=== PATIENT | female | born 1945 | race Caucasian/White ===

== ENCOUNTER → 2020-05-01 | Day surgery (SDC) | payer MEDICARE ==
[2020-04-28 14:16] LABS: BASOPHILS # (AUTO) 0.1 (0.0-0.1); EOSINOPHILS # (AUTO) 0.2 (0.0-0.4); EOSINOPHILS % 3.7 % (0.0-6.0); HEMATOCRIT 43.1 % (34.2-44.1); HEMOGLOBIN 13.4 g/dL (12.0-16.0); LYMPHOCYTES # (AUTO) 2.6 (1.0-3.2); LYMPHOCYTES % 43.8 % (18.0-39.1); MEAN CORPUSCULAR HEMOGLOBIN 26.4 pg (28-32); MEAN CORPUSCULAR HGB CONC 31.1 g/dL (31-35); MEAN CORPUSCULAR VOLUME 84.8 fL (81-99); MONOCYTES # (AUTO) 0.5 (0.2-0.8); MONOCYTES % 8.5 % (4.4-11.3); NEUTROPHILS # (AUTO) 2.5 (2.1-6.9); NEUTROPHILS % 42.8 % (38.7-80.0); PLATELET COUNT 178 x10e3/uL (140-360); RED BLOOD COUNT 5.08 x10e6/uL (3.6-5.1); RED CELL DISTRIBUTION WIDTH 14.9 % (11.7-14.4)
[~2020-05-01] MED LIST: ACULAR5 ML OS; AMLODIPINE BESY10 MG PO; CALCIUM 1,0001 EACH PO; CALCIUM PLUS D3 PO; COQ-10100 MG PO; CYCLOBENZAPRINE10 MG PO; DUREZOL5 ML OS; FENTANYL CITRATE/PF 100MCG/2 ML INJ ONE; GABAPENTIN400 MG PO; GABAPENTIN600 MG PO; HYDRALAZINE HCL50 MG PO; HYDROCODONE/AP1 EAC1 PO; HYDROXYCHLOROQ200 MG PO; LIDOCAINE HCL 2% LOCAL INJ 5 ML SDV VIAL INJ ONE; LORTAB 7.51 EA PO; LOSARTAN POTAS100 MG PO; METOCLOPRAMIDE PO; MIDAZOLAM HCL 2 MG/2 ML VIAL ONE; MONTELUKAST SOD10 MG PO; MULTI-VITAMIN1 EACH PO; NORCO 10-325 T1 EACH PO; OMEGA 3-6-9 CO1 EACH PO; OMEPRAZOLE PO; OMEPRAZOLE40 MG PO; OXYBUTYNIN CHLOR5 MG PO; PROPOFOL IV EMULSION 10 MG/ML 20 ML VIAL ONE; ROBAXIN750 MG PO; SUPER B-50 COM1 EACH PO; TRAZODONE HCL100 MG PO; TURMERIC1 GM PO; VITAMIN D325 MCG PO; Z CO Q PO; Z VITAMIN C PO; Z.0.GABAPENTIN300 MG PO; Z.0.LEVOTHYROXINE50 PO; Z.0.MELOXICAM15 MG PO; Z.0.MULTIVITAMINS1 E PO; Z.0.VITAMIN E1000 UN PO; Z.1.CETIRIZINE HCL10 PO; [UNRECOGNIZED DRUG - OTHER] PO; [UNRECOGNIZED DRUG - OTHER] PO; [UNRECOGNIZED DRUG - OTHER] PO
[2020-05-01 10:15] VITALS: BP 117/63
== END | disposition home or self-care (01) ==
LOC: OR 06:54
PROVIDERS: ATTEND Internal Medicine Gastroenterology
DX: K20.90 Esophagitis, unspecified without bleeding (principal); K29.50 Unspecified chronic gastritis without bleeding; K31.89 Other diseases of stomach and duodenum; K21.9 Gastro-esophageal reflux disease without esophagitis; Z71.3 Dietary counseling and surveillance; E66.9 Obesity, unspecified; Z91.048 Other nonmedicinal substance allergy status; I10 Essential (primary) hypertension; E66.01 Morbid (severe) obesity due to excess calories; Z88.6 Allergy status to analgesic agent; Z01.810 Encounter for preprocedural cardiovascular examination; Z01.812 Encounter for preprocedural laboratory examination; Z20.828 Contact with and (suspected) exposure to other viral communicable diseases; Z68.39 Body mass index [BMI] 39.0-39.9, adult; Z87.891 Personal history of nicotine dependence
CPT/HCPCS: 36415; 43233; 43239; 85025; 87106; 87205; 88305; 88312; 93005; J2001; J2250; J2704; J3010; U0002; 43235

== ENCOUNTER → 2020-06-03 | Outpatient (CLI) | payer MEDICARE ==
[~2020-06-03] MED LIST changes: -FENTANYL CITRATE/PF 100MCG/2 ML INJ ONE; -LIDOCAINE HCL 2% LOCAL INJ 5 ML SDV VIAL INJ ONE; -MIDAZOLAM HCL 2 MG/2 ML VIAL ONE; -PROPOFOL IV EMULSION 10 MG/ML 20 ML VIAL ONE
== END ==
LOC: RAD 13:12
PROVIDERS: ATTEND Internal Medicine
DX: R60.0 Localized edema (principal)
CPT/HCPCS: 93970

== ENCOUNTER 2021-04-24 09:04 | Inpatient (IN) | payer MEDICARE ==
[~2021-04-24] VITALS: Ht 165.1 cm; Wt 115.7 kg
[2021-04-24] MEDS ORDERED: ONDANSETRON HCL INJ 2MG/ML 2ML 2 MG/ML VIAL IV PRN (09:45)
[2021-04-24] MEDS ORDERED: FENTANYL CITRATE/PF 100MCG/2 ML INJ IV PRN (09:45)
[2021-04-24] MEDS ORDERED: SODIUM CHLORIDE 0.9% 1000ML 1,000 ML IV SCH (09:45)
[2021-04-24] MEDS: CEFEPIME 1 GM in SODIUM CHLORIDE 0.9% 50ML 50 ML IV SCH ×2 (10:19→21:59)
[2021-04-24 10:39] LABS: BASOPHILS # (AUTO) 0.1 (0.0-0.1); EOSINOPHILS # (AUTO) 0.2 (0.0-0.4); EOSINOPHILS % 2.4 % (0.0-6.0); HEMOGLOBIN 12.8 g/dL (12.0-16.0); LYMPHOCYTES # (AUTO) 1.8 (1.0-3.2); LYMPHOCYTES % 27.4 % (18.0-39.1); MEAN CORPUSCULAR HEMOGLOBIN 26.4 pg (28-32); MEAN CORPUSCULAR HGB CONC 30.5 g/dL (31-35); MEAN CORPUSCULAR VOLUME 86.8 fL (81-99); MONOCYTES # (AUTO) 0.9 (0.2-0.8); NEUTROPHILS # (AUTO) 3.7 (2.1-6.9); NEUTROPHILS % 55.6 % (38.7-80.0); PLATELET COUNT 245 x10e3/uL (140-360); RED BLOOD COUNT 4.84 x10e6/uL (3.6-5.1); RED CELL DISTRIBUTION WIDTH 14.5 % (11.7-14.4)
[2021-04-24 10:48] LABS: ALBUMIN 4.2 g/dL (3.5-5.0); ALBUMIN/GLOBULIN RATIO 1.3 (0.8-2.0); CALCIUM 9.3 mg/dL (8.4-10.2); CREATININE, SERUM 0.74 mg/dL (0.57-1.11)
[2021-04-24] MEDS: Vancomycin IV 1 GM in SODIUM CHLORIDE 0.9% 250ML 250 ML IV SCH (10:57)
[2021-04-24] MEDS: SODIUM CHLORIDE 0.9% 1000ML 1,000 ML IV SCH ×2 (11:22→18:03)
[2021-04-24 15:52] VITALS: BP 91/71
[2021-04-24 17:26] VITALS: BP 91/71
[2021-04-24 17:46] VITALS: BP 91/71
[2021-04-24] MEDS ORDERED: PNEUMOCOCCAL VACCINE POLYVALENT 23 MCG/0.5 ML VIAL IM ONE (18:30)
[2021-04-24] MEDS ORDERED: TRAZODONE HCL 50 MG TAB PO PRN (18:30)
[2021-04-24] MEDS: HYDROCODONE/APAP 10MG-325MG TAB PO PRN (19:51)
[2021-04-24 20:00] VITALS: BP 109/57
[2021-04-24] MEDS: CYCLOBENZAPRINE HCL 10 MG TAB PO SCH (20:09)
[2021-04-24] MEDS ORDERED: GABAPENTIN 400 MG CAP PO SCH ×2 (21:00)
[2021-04-24] MEDS: HYDRALAZINE HCL 25 MG TAB PO SCH (21:00)
[2021-04-24] MEDS: AMLODIPINE BESYLATE 10 MG TAB PO SCH (21:00)
[2021-04-24 21:15] VITALS: BP 109/57
[2021-04-25] VITALS (9 sets, daily range): BP systolic 126–157; BP diastolic 59–89
[2021-04-25] MEDS: SODIUM CHLORIDE 0.9% 1000ML 1,000 ML IV SCH ×3 (01:11→18:05)
[2021-04-25] MEDS: OXYBUTYNIN CHLORIDE 5 MG TAB PO SCH ×4 (05:03→21:23)
[2021-04-25 06:36] LABS: BASOPHILS # (AUTO) 0.1 (0.0-0.1); BASOPHILS % 1.2 % (0.0-1.0); EOSINOPHILS # (AUTO) 0.1 (0.0-0.4); EOSINOPHILS % 1.7 % (0.0-6.0); HEMATOCRIT 39.6 % (34.2-44.1); LYMPHOCYTES # (AUTO) 2.3 (1.0-3.2); LYMPHOCYTES % 32.8 % (18.0-39.1); MEAN CORPUSCULAR HEMOGLOBIN 26.6 pg (28-32); MEAN CORPUSCULAR HGB CONC 30.3 g/dL (31-35); MEAN CORPUSCULAR VOLUME 87.8 fL (81-99); MONOCYTES # (AUTO) 0.9 (0.2-0.8); MONOCYTES % 13.4 % (4.4-11.3); NEUTROPHILS # (AUTO) 3.5 (2.1-6.9); NEUTROPHILS % 50.5 % (38.7-80.0); PLATELET COUNT 232 x10e3/uL (140-360); RED BLOOD COUNT 4.51 x10e6/uL (3.6-5.1); RED CELL DISTRIBUTION WIDTH 14.6 % (11.7-14.4)
[2021-04-25 07:11] LABS: CALCIUM 8.8 mg/dL (8.4-10.2); CREATININE, SERUM 0.62 mg/dL (0.57-1.11)
[2021-04-25] MEDS ORDERED: LEVOTHYROXINE SODIUM 50 MCG TAB PO SCH (09:00)
[2021-04-25] MEDS ORDERED: VITAMIN B COMPLEX PO SCH (09:00)
[2021-04-25] MEDS ORDERED: OXYBUTYNIN CHLORIDE 5 MG TAB PO SCH (09:00)
[2021-04-25] MEDS: HYDRALAZINE HCL 25 MG TAB PO SCH ×3 (09:43→21:23)
[2021-04-25] MEDS: CYCLOBENZAPRINE HCL 10 MG TAB PO SCH ×3 (09:43→21:25)
[2021-04-25] MEDS: MULTIVITAMINS/MINERALS TAB PO SCH (09:43)
[2021-04-25] MEDS: MELOXICAM 7.5 MG TAB PO SCH (09:43)
[2021-04-25] MEDS: OYST-CAL-D 500MG TABLET PO SCH (09:44)
[2021-04-25] MEDS: MONTELUKAST SODIUM 10 MG TAB PO SCH (09:44)
[2021-04-25] MEDS: CHOLECALCIFEROL 1,000 UNIT TAB PO SCH ×2 (09:44→18:05)
[2021-04-25] MEDS: PANTOPRAZOLE SOD 40 MG TABEC PO SCH ×2 (09:44→18:05)
[2021-04-25] MEDS: ASCORBIC ACID 500 MG TAB PO SCH (09:44)
[2021-04-25] MEDS: HYDROCODONE/APAP 10MG-325MG TAB PO PRN ×3 (10:45→22:08)
[2021-04-25] MEDS: CEFEPIME 1 GM in SODIUM CHLORIDE 0.9% 50ML 50 ML IV SCH ×2 (12:50→21:25)
[2021-04-25] MEDS: GABAPENTIN 400 MG CAP PO SCH ×2 (12:51→21:25)
[2021-04-25] MEDS: Vancomycin IV 1 GM in SODIUM CHLORIDE 0.9% 250ML 250 ML IV SCH (12:51)
[2021-04-25] MEDS: FOLIC ACID/CYANOCOB/PYRIDOXINE TAB PO SCH (12:51)
[2021-04-25] MEDS: AMLODIPINE BESYLATE 10 MG TAB PO SCH (21:25)
[2021-04-26] VITALS (8 sets, daily range): BP systolic 117–139; BP diastolic 58–77
[2021-04-26] MEDS: SODIUM CHLORIDE 0.9% 1000ML 1,000 ML IV SCH ×4 (01:04→23:56)
[2021-04-26] MEDS ORDERED: PNEUMOCOCCAL VACCINE POLYVALENT 23 MCG/0.5 ML VIAL IM ONE (03:00)
[2021-04-26] MEDS: LEVOTHYROXINE SODIUM 100 MCG TAB PO SCH (05:39)
[2021-04-26] MEDS: UBIDECARENONE 400 MG PO SCH (08:33)
[2021-04-26] MEDS: TURMERIC 1500 MG PO SCH (08:33)
[2021-04-26] MEDS: CYCLOBENZAPRINE HCL 10 MG TAB PO SCH ×3 (09:00→22:15)
[2021-04-26] MEDS: FOLIC ACID/CYANOCOB/PYRIDOXINE TAB PO SCH (09:00)
[2021-04-26] MEDS: OYST-CAL-D 500MG TABLET PO SCH (09:00)
[2021-04-26] MEDS: MELOXICAM 7.5 MG TAB PO SCH (09:00)
[2021-04-26] MEDS: CHOLECALCIFEROL 1,000 UNIT TAB PO SCH ×2 (09:00→16:38)
[2021-04-26] MEDS: PANTOPRAZOLE SOD 40 MG TABEC PO SCH ×2 (09:00→16:38)
[2021-04-26] MEDS: ASCORBIC ACID 500 MG TAB PO SCH (09:00)
[2021-04-26] MEDS: OXYBUTYNIN CHLORIDE 5 MG TAB PO SCH ×3 (09:00→22:15)
[2021-04-26] MEDS: HYDRALAZINE HCL 25 MG TAB PO SCH ×3 (09:00→22:15)
[2021-04-26] MEDS: MONTELUKAST SODIUM 10 MG TAB PO SCH (09:00)
[2021-04-26] MEDS: GABAPENTIN 400 MG CAP PO SCH ×2 (09:00→22:15)
[2021-04-26] MEDS: MULTIVITAMINS/MINERALS TAB PO SCH (09:00)
[2021-04-26] MEDS: CEFEPIME 1 GM in SODIUM CHLORIDE 0.9% 50ML 50 ML IV SCH ×3 (10:00→15:07)
[2021-04-26] MEDS: Vancomycin IV 1 GM in SODIUM CHLORIDE 0.9% 250ML 250 ML IV SCH ×3 (10:30→15:30)
[2021-04-26] MEDS: HYDROCODONE/APAP 10MG-325MG TAB PO PRN ×2 (17:29→23:52)
[2021-04-26] MEDS: AMLODIPINE BESYLATE 10 MG TAB PO SCH (22:15)
[2021-04-26] MEDS: TRAZODONE HCL 50 MG TAB PO PRN (22:17)
[2021-04-27] VITALS (9 sets, daily range): BP systolic 136–172; BP diastolic 60–79
[2021-04-27] MEDS: CEFEPIME 1 GM in SODIUM CHLORIDE 0.9% 50ML 50 ML IV SCH ×2 (02:47→15:33)
[2021-04-27] MEDS: LEVOTHYROXINE SODIUM 100 MCG TAB PO SCH (05:01)
[2021-04-27] MEDS: HYDROCODONE/APAP 10MG-325MG TAB PO PRN ×2 (06:15→22:16)
[2021-04-27] MEDS: MONTELUKAST SODIUM 10 MG TAB PO SCH (08:42)
[2021-04-27] MEDS: MULTIVITAMINS/MINERALS TAB PO SCH (08:42)
[2021-04-27] MEDS: ASCORBIC ACID 500 MG TAB PO SCH (08:42)
[2021-04-27] MEDS: CYCLOBENZAPRINE HCL 10 MG TAB PO SCH ×3 (08:42→21:45)
[2021-04-27] MEDS: OXYBUTYNIN CHLORIDE 5 MG TAB PO SCH ×3 (08:42→21:45)
[2021-04-27] MEDS: HYDRALAZINE HCL 25 MG TAB PO SCH ×3 (08:42→21:46)
[2021-04-27] MEDS: OYST-CAL-D 500MG TABLET PO SCH (08:42)
[2021-04-27] MEDS: FOLIC ACID/CYANOCOB/PYRIDOXINE TAB PO SCH (08:42)
[2021-04-27] MEDS: MELOXICAM 7.5 MG TAB PO SCH (08:42)
[2021-04-27] MEDS: PANTOPRAZOLE SOD 40 MG TABEC PO SCH ×2 (08:42→17:08)
[2021-04-27] MEDS: GABAPENTIN 400 MG CAP PO SCH ×2 (08:42→21:45)
[2021-04-27] MEDS: CHOLECALCIFEROL 1,000 UNIT TAB PO SCH ×2 (08:42→17:08)
[2021-04-27] MEDS: UBIDECARENONE 400 MG PO SCH (09:00)
[2021-04-27] MEDS: TURMERIC 1500 MG PO SCH (09:00)
[2021-04-27] MEDS: NYSTATIN/TRIAMCINOLONE 30 GM CR TOP SCH (15:45)
[2021-04-27] MEDS: Vancomycin IV 1 GM in SODIUM CHLORIDE 0.9% 250ML 250 ML IV SCH (16:30)
[2021-04-27] MEDS: AMLODIPINE BESYLATE 10 MG TAB PO SCH (21:46)
[2021-04-28] VITALS (7 sets, daily range): BP systolic 141–154; BP diastolic 68–75
[2021-04-28] MEDS: CEFEPIME 1 GM in SODIUM CHLORIDE 0.9% 50ML 50 ML IV SCH ×2 (03:18→15:00)
[2021-04-28] MEDS: LEVOTHYROXINE SODIUM 100 MCG TAB PO SCH (06:25)
[2021-04-28] MEDS: HYDRALAZINE HCL 25 MG TAB PO SCH ×3 (08:30→20:39)
[2021-04-28] MEDS: OXYBUTYNIN CHLORIDE 5 MG TAB PO SCH ×3 (08:30→20:39)
[2021-04-28] MEDS: CYCLOBENZAPRINE HCL 10 MG TAB PO SCH ×3 (08:30→20:39)
[2021-04-28] MEDS: UBIDECARENONE 400 MG PO SCH (09:00)
[2021-04-28] MEDS: TURMERIC 1500 MG PO SCH (09:00)
[2021-04-28] MEDS: NYSTATIN/TRIAMCINOLONE 30 GM CR TOP SCH (09:00)
[2021-04-28] MEDS: OYST-CAL-D 500MG TABLET PO SCH (10:10)
[2021-04-28] MEDS: GABAPENTIN 400 MG CAP PO SCH ×2 (10:10→20:39)
[2021-04-28] MEDS: MONTELUKAST SODIUM 10 MG TAB PO SCH (10:10)
[2021-04-28] MEDS: PANTOPRAZOLE SOD 40 MG TABEC PO SCH ×2 (10:10→17:17)
[2021-04-28] MEDS: CHOLECALCIFEROL 1,000 UNIT TAB PO SCH ×2 (10:10→17:18)
[2021-04-28] MEDS: MELOXICAM 7.5 MG TAB PO SCH (10:10)
[2021-04-28] MEDS: ASCORBIC ACID 500 MG TAB PO SCH (10:10)
[2021-04-28] MEDS: FOLIC ACID/CYANOCOB/PYRIDOXINE TAB PO SCH (10:10)
[2021-04-28] MEDS: MULTIVITAMINS/MINERALS TAB PO SCH (10:10)
[2021-04-28] MEDS: HYDROCODONE/APAP 10MG-325MG TAB PO PRN ×2 (15:00→22:33)
[2021-04-28] MEDS: Vancomycin IV 1 GM in SODIUM CHLORIDE 0.9% 250ML 250 ML IV SCH (16:00)
[2021-04-28] MEDS: AMLODIPINE BESYLATE 10 MG TAB PO SCH (20:39)
[2021-04-28] MEDS: TRAZODONE HCL 50 MG TAB PO PRN (22:33)
[2021-04-29] VITALS (9 sets, daily range): BP systolic 108–133; BP diastolic 58–79
[2021-04-29] MEDS: CEFEPIME 1 GM in SODIUM CHLORIDE 0.9% 50ML 50 ML IV SCH ×2 (03:30→14:00)
[2021-04-29] MEDS ORDERED: SODIUM CHLORIDE 0.9% 250ML 250 ML ONE (03:32)
[2021-04-29] MEDS: LEVOTHYROXINE SODIUM 100 MCG TAB PO SCH (06:00)
[2021-04-29] MEDS ORDERED: MUPIROCIN 2% OINT 22 GM TUBE TOP SCH (09:00)
[2021-04-29] MEDS: UBIDECARENONE 400 MG PO SCH (09:00)
[2021-04-29] MEDS: HYDRALAZINE HCL 25 MG TAB PO SCH ×3 (09:00→21:00)
[2021-04-29] MEDS: TURMERIC 1500 MG PO SCH (09:16)
[2021-04-29] MEDS: OXYBUTYNIN CHLORIDE 5 MG TAB PO SCH ×3 (09:17→21:00)
[2021-04-29] MEDS: OYST-CAL-D 500MG TABLET PO SCH (09:19)
[2021-04-29] MEDS: PANTOPRAZOLE SOD 40 MG TABEC PO SCH ×2 (09:19→16:15)
[2021-04-29] MEDS: CYCLOBENZAPRINE HCL 10 MG TAB PO SCH ×3 (09:19→21:00)
[2021-04-29] MEDS: GABAPENTIN 400 MG CAP PO SCH ×2 (09:19→21:00)
[2021-04-29] MEDS: FOLIC ACID/CYANOCOB/PYRIDOXINE TAB PO SCH (09:19)
[2021-04-29] MEDS: MULTIVITAMINS/MINERALS TAB PO SCH (09:19)
[2021-04-29] MEDS: MONTELUKAST SODIUM 10 MG TAB PO SCH (09:19)
[2021-04-29] MEDS: CHOLECALCIFEROL 1,000 UNIT TAB PO SCH ×2 (09:19→16:15)
[2021-04-29] MEDS: MELOXICAM 7.5 MG TAB PO SCH (09:19)
[2021-04-29] MEDS: ASCORBIC ACID 500 MG TAB PO SCH (09:19)
[2021-04-29] MEDS: NYSTATIN/TRIAMCINOLONE 30 GM CR TOP SCH (11:37)
[2021-04-29] MEDS: Vancomycin IV 1 GM in SODIUM CHLORIDE 0.9% 250ML 250 ML IV SCH ×2 (11:37→22:30)
[2021-04-29] MEDS ORDERED: ONDANSETRON HCL 4 MG ORAL DISINTEGRATING TAB PO PRN (13:15)
[2021-04-29] MEDS: HYDROCODONE/APAP 10MG-325MG TAB PO PRN (18:01)
[2021-04-29] MEDS: AMLODIPINE BESYLATE 10 MG TAB PO SCH (21:00)
[2021-04-30] VITALS: BP 151/63
[2021-04-30] MEDS: TRAZODONE HCL 50 MG TAB PO PRN (00:40)
[2021-04-30] MEDS: CEFEPIME 1 GM in SODIUM CHLORIDE 0.9% 50ML 50 ML IV SCH (02:45)
[2021-04-30 04:00] VITALS: BP 123/76
[2021-04-30] MEDS: LEVOTHYROXINE SODIUM 100 MCG TAB PO SCH (06:00)
[2021-04-30 07:36] VITALS: BP 125/78
[2021-04-30 07:50] VITALS: BP 125/78
[2021-04-30] MEDS: HYDRALAZINE HCL 25 MG TAB PO SCH (08:31)
[2021-04-30] MEDS: OXYBUTYNIN CHLORIDE 5 MG TAB PO SCH (08:31)
[2021-04-30] MEDS: MELOXICAM 7.5 MG TAB PO SCH (08:32)
[2021-04-30] MEDS: MULTIVITAMINS/MINERALS TAB PO SCH (08:32)
[2021-04-30] MEDS: CYCLOBENZAPRINE HCL 10 MG TAB PO SCH (08:32)
[2021-04-30] MEDS: GABAPENTIN 400 MG CAP PO SCH (08:33)
[2021-04-30] MEDS: MONTELUKAST SODIUM 10 MG TAB PO SCH (08:34)
[2021-04-30] MEDS: CHOLECALCIFEROL 1,000 UNIT TAB PO SCH (08:34)
[2021-04-30] MEDS: ASCORBIC ACID 500 MG TAB PO SCH (08:34)
[2021-04-30] MEDS: FOLIC ACID/CYANOCOB/PYRIDOXINE TAB PO SCH (09:00)
[2021-04-30] MEDS: TURMERIC 1500 MG PO SCH (09:00)
[2021-04-30] MEDS: OYST-CAL-D 500MG TABLET PO SCH (09:00)
[2021-04-30] MEDS: UBIDECARENONE 400 MG PO SCH (09:00)
[2021-04-30] MEDS: PANTOPRAZOLE SOD 40 MG TABEC PO SCH (09:39)
[2021-05-01] MEDS ORDERED: HYDROXYCHLOROQUINE SULFATE 200 MG TAB PO SCH (09:00)
== END 2021-04-30 10:05 | disposition home or self-care (01) | DRG 603 ==
LOC: ER 09:35 → ERHOLD 09:39 → MED/SURG2 15:00
PROVIDERS: ADMIT Internal Medicine; ATTEND Internal Medicine
PROC: 02HV33Z Insertion of Infusion Device into Superior Vena Cava, Percutaneous Approach (ICD-10-PCS; principal; 2021-04-26)
DX: L03.116 Cellulitis of left lower limb (principal); Z68.41 Body mass index [BMI] 40.0-44.9, adult; L03.115 Cellulitis of right lower limb; I10 Essential (primary) hypertension; G62.9 Polyneuropathy, unspecified; K21.9 Gastro-esophageal reflux disease without esophagitis; E03.9 Hypothyroidism, unspecified; E66.01 Morbid (severe) obesity due to excess calories; Z20.822 Contact with and (suspected) exposure to COVID-19; G89.29 Other chronic pain; Z96.649 Presence of unspecified artificial hip joint; Z96.659 Presence of unspecified artificial knee joint
CPT/HCPCS: 36415; 36569; 71045; 80048; 80053; 80202; 83605; 85025; 87040; 90732; 93970; 94799; 99251; 99284; J0692; J3010; J3370; J7030; J7050; U0002

== ENCOUNTER → 2022-04-06 | Day surgery (SDC) | payer MEDICARE ==
[2022-04-01 12:14] LABS: BASOPHILS # (AUTO) 0.1 (0.0-0.1); BASOPHILS % 0.8 % (0.0-1.0); EOSINOPHILS # (AUTO) 0.2 (0.0-0.4); HEMATOCRIT 43.5 % (34.2-44.1); HEMOGLOBIN 13.6 g/dL (12.0-16.0); LYMPHOCYTES # (AUTO) 2.3 (1.0-3.2); LYMPHOCYTES % 31.1 % (18.0-39.1); MEAN CORPUSCULAR HGB CONC 31.3 g/dL (31-35); MEAN CORPUSCULAR VOLUME 86.5 fL (81-99); MONOCYTES # (AUTO) 0.7 (0.2-0.8); MONOCYTES % 9.2 % (4.4-11.3); NEUTROPHILS # (AUTO) 4.1 (2.1-6.9); NEUTROPHILS % 55.8 % (38.7-80.0); PLATELET COUNT 215 x10e3/uL (140-360); RED BLOOD COUNT 5.03 x10e6/uL (3.6-5.1); RED CELL DISTRIBUTION WIDTH 13.5 % (11.7-14.4)
[2022-04-01 12:57] LABS: ALANINE AMINOTRANSFERASE 14 IU/L (0-55); ALBUMIN 4.3 g/dL (3.5-5.0); ALBUMIN/GLOBULIN RATIO 1.2 (0.8-2.0); ALKALINE PHOSPHATASE 64 IU/L (40-150); ANION GAP 16.9 mmol/L (8-16); BLOOD UREA NITROGEN 18 mg/dL (7-26); BUN/CREATININE RATIO 23 (6-25); CALCIUM 9.8 mg/dL (8.4-10.2); CARBON DIOXIDE 29 mmol/L (22-29); CHLORIDE 98 mmol/L (98-107); CHOL/HDL RATIO 2.9 (3.0-3.6); CHOLESTEROL 159 MD/DL (0-199); CREATININE, SERUM 0.77 mg/dL (0.57-1.11); GLUCOSE 98 mg/dL (74-118); HDL CHOLESTEROL 55 MG/DL (40-60); LDL CHOLESTEROL 81 MG/DL (60-130); POTASSIUM 3.9 mmol/L (3.5-5.1); SODIUM 140 mmol/L (136-145); TRIGLYCERIDES 114 MG/DL (0-149)
[2022-04-06] VITALS (9 sets, daily range): BP systolic 106–157; BP diastolic 57–68
[~2022-04-06] VITALS: Ht 165.1 cm; Wt 107.5 kg
[~2022-04-06] MED LIST changes: +ACETAMINOPHEN 325 MG TAB PO PRN; +ALPRAZOLAM 0.5 MG TAB ONE; +ASPIRIN 325 MG TAB ONE; +BUSPIRONE HCL 10 MG TABLET PO SCH; +BUSPIRONE HCL10 MG PO; +CO Q10200 MG; +DIPHENHYDRAMINE HCL 25 MG CAP ONE; +FENTANYL CITRATE/PF 100MCG/2 ML INJ ONE; +GABAPENTIN 400 MG CAP PO SCH; +HEPARIN SOD/SOD CHLORIDE 2,000 ML ONE; +HYDRALAZINE HCL 25 MG TAB PO SCH; +HYDROCODONE/APAP 10MG-325MG TAB PO PRN; +HYDROCODONE/APAP 5MG-325MG TAB PO PRN; +HYDROXYCHLOROQUINE SULFATE 200 MG TAB PO SCH; +HYZAAR 100-251 EACH; +IOPAMIDOL 300MG/ML 100 ML INFUS..BTL IV ONE; +LEVOTHYROXINE SODIUM 50 MCG TAB PO SCH; +LIDOCAINE HCL 2% LOCAL INJ 5 ML SDV VIAL INJ ONE; +LIOTHYRONINE SO5 MCG PO; +LIOTHYRONINE SODIUM 5 MCG TAB PO SCH; +MELOXICAM 7.5 MG TAB PO SCH; +MIDAZOLAM HCL 2 MG/2 ML VIAL ONE; +MONTELUKAST SODIUM 10 MG TAB PO SCH; +MULTIVITAMINS/MINERALS TAB PO SCH; +ONDANSETRON HCL INJ 2MG/ML 2ML 2 MG/ML VIAL IV PRN; +OXYBUTYNIN CHLORIDE 5 MG TAB PO SCH; +PANTOPRAZOLE SOD 40 MG TABEC PO SCH; +PRASUGREL 10 MG TAB ONE; +SODIUM CHLORIDE 0.9% 1000ML 1,000 ML IV SCH; +SODIUM CHLORIDE FLUSH 10 ML SYR INJ PRN; +TRAZODONE HCL 50 MG TAB PO PRN; +TURMERIC 1500 MG PO SCH; +UBIDECARENONE 400 MG PO SCH; +UBIDECARENONE 600 MG SCH; +VERAPAMIL HCL 2.5 MG/ML 2 ML VIAL ONE; +VITAMIN B COMPLEX PO SCH; +VITAMIN E 400 UNIT CAP PO SCH; +VITAMIN E400 UNI1 PO; +ZOLPIDEM TARTRATE 5 MG TAB PO PRN; +[UNRECOGNIZED DRUG - OTHER]
== END | disposition home or self-care (01) ==
LOC: CATH LAB 10:14
PROVIDERS: ATTEND Internal Medicine Interventional Cardiology
DX: I70.211 Atherosclerosis of native arteries of extremities with intermittent claudication, right leg (principal); L03.119 Cellulitis of unspecified part of limb; I87.2 Venous insufficiency (chronic) (peripheral); R60.9 Edema, unspecified; Z88.6 Allergy status to analgesic agent; Z91.048 Other nonmedicinal substance allergy status; Z01.812 Encounter for preprocedural laboratory examination; Z20.822 Contact with and (suspected) exposure to COVID-19; Z79.899 Other long term (current) drug therapy; Z79.1 Long term (current) use of non-steroidal anti-inflammatories (NSAID); Z68.42 Body mass index [BMI] 45.0-49.9, adult; Z86.718 Personal history of other venous thrombosis and embolism; Z82.49 Family history of ischemic heart disease and other diseases of the circulatory system
CPT/HCPCS: 0223U; 36415; 37225; 75625; 76937; 80053; 80061; 85025; 94799; C1724; C1760; C1887 ×2; C1894; C2623; J2001; J2250; J3010; J7030; Q9967; 36247; 37224; 75710; 99152; 99153

== ENCOUNTER 2022-07-08 10:06 | Outpatient (RCR) | payer MEDICARE ==
[~2022-07-08 10:06] MED LIST changes: -ACETAMINOPHEN 325 MG TAB PO PRN; -ALPRAZOLAM 0.5 MG TAB ONE; -ASPIRIN 325 MG TAB ONE; +ASPIRIN81 MG PO; +ATORVASTATIN CA20 MG PO; -BUSPIRONE HCL 10 MG TABLET PO SCH; +CLOPIDOGREL75 MG PO; -DIPHENHYDRAMINE HCL 25 MG CAP ONE; -FENTANYL CITRATE/PF 100MCG/2 ML INJ ONE; -GABAPENTIN 400 MG CAP PO SCH; -HEPARIN SOD/SOD CHLORIDE 2,000 ML ONE; -HYDRALAZINE HCL 25 MG TAB PO SCH; -HYDROCODONE/APAP 10MG-325MG TAB PO PRN; -HYDROCODONE/APAP 5MG-325MG TAB PO PRN; -HYDROXYCHLOROQUINE SULFATE 200 MG TAB PO SCH; -IOPAMIDOL 300MG/ML 100 ML INFUS..BTL IV ONE; -LEVOTHYROXINE SODIUM 50 MCG TAB PO SCH; -LIDOCAINE HCL 2% LOCAL INJ 5 ML SDV VIAL INJ ONE; -LIOTHYRONINE SODIUM 5 MCG TAB PO SCH; -MELOXICAM 7.5 MG TAB PO SCH; -MIDAZOLAM HCL 2 MG/2 ML VIAL ONE; -MONTELUKAST SODIUM 10 MG TAB PO SCH; -MULTIVITAMINS/MINERALS TAB PO SCH; -ONDANSETRON HCL INJ 2MG/ML 2ML 2 MG/ML VIAL IV PRN; -OXYBUTYNIN CHLORIDE 5 MG TAB PO SCH; -PANTOPRAZOLE SOD 40 MG TABEC PO SCH; -PRASUGREL 10 MG TAB ONE; -SODIUM CHLORIDE 0.9% 1000ML 1,000 ML IV SCH; -SODIUM CHLORIDE FLUSH 10 ML SYR INJ PRN; +TERBINAFINE HC250 MG PO; -TRAZODONE HCL 50 MG TAB PO PRN; -TURMERIC 1500 MG PO SCH; -UBIDECARENONE 400 MG PO SCH; -UBIDECARENONE 600 MG SCH; -VERAPAMIL HCL 2.5 MG/ML 2 ML VIAL ONE; -VITAMIN B COMPLEX PO SCH; -VITAMIN E 400 UNIT CAP PO SCH; -ZOLPIDEM TARTRATE 5 MG TAB PO PRN; +[UNRECOGNIZED DRUG - OTHER] PO
[2022-07-08] MEDS ORDERED: LIDOCAINE VISC 2% SOLN 15 ML UDC ONE (13:37)
[2022-07-08] MEDS ORDERED: MINERAL OIL/PETROLAT/GLYCERI 6OZ BTL ONE (13:37)
[2022-07-08] MEDS ORDERED: TRIAMCINOLONE ACET 0.1% CREAM 15 GM TUBE ONE (13:37)
[2022-07-08] MEDS ORDERED: MUPIROCIN 2% OINT 22 GM TUBE ONE (13:37)
[2022-07-08 13:45] LABS: BASOPHILS # (AUTO) 0.1 (0.0-0.1); BASOPHILS % 1.3 % (0.0-1.0); EOSINOPHILS # (AUTO) 0.3 (0.0-0.4); EOSINOPHILS % 4.1 % (0.0-6.0); HEMATOCRIT 39.6 % (34.2-44.1); HEMOGLOBIN 12.4 g/dL (12.0-16.0); LYMPHOCYTES % 28.7 % (18.0-39.1); MEAN CORPUSCULAR HEMOGLOBIN 26.6 pg (28-32); MEAN CORPUSCULAR HGB CONC 31.3 g/dL (31-35); MONOCYTES # (AUTO) 0.7 (0.2-0.8); MONOCYTES % 10.2 % (4.4-11.3); NEUTROPHILS # (AUTO) 3.8 (2.1-6.9); NEUTROPHILS % 55.3 % (38.7-80.0); PLATELET COUNT 243 x10e3/uL (140-360); RED BLOOD COUNT 4.66 x10e6/uL (3.6-5.1); RED CELL DISTRIBUTION WIDTH 14.5 % (11.7-14.4)
[2022-07-08 14:07] LABS: ALBUMIN 3.9 g/dL (3.5-5.0); ALBUMIN/GLOBULIN RATIO 1.2 (0.8-2.0); ANION GAP 14.1 mmol/L (8-16); CALCIUM 9.4 mg/dL (8.4-10.2); CREATININE, SERUM 0.68 mg/dL (0.57-1.11); POTASSIUM 4.1 mmol/L (3.5-5.1)
== END 2022-07-13 ==
LOC: WCC 10:06
PROVIDERS: ATTEND Family Medicine Adult Medicine
DX: S31.819A Unspecified open wound of right buttock, initial encounter (principal); S31.829A Unspecified open wound of left buttock, initial encounter; S81.801A Unspecified open wound, right lower leg, initial encounter; I83.10 Varicose veins of unspecified lower extremity with inflammation; R60.0 Localized edema; I10 Essential (primary) hypertension; E78.5 Hyperlipidemia, unspecified; E03.9 Hypothyroidism, unspecified; M54.31 Sciatica, right side; M17.9 Osteoarthritis of knee, unspecified; F41.1 Generalized anxiety disorder; K21.9 Gastro-esophageal reflux disease without esophagitis; R26.89 Other abnormalities of gait and mobility
CPT/HCPCS: 36415; 80053; 82784; 82785; 84134; 85025; 86039; 86431; 87071; 87075; 87205

== ENCOUNTER → 2022-07-27 | Day surgery (SDC) | payer MEDICARE | END | disposition home or self-care (01) | LOC: OR 05:55 | PROVIDERS: ATTEND Plastic Surgery | DX: S21.002A Unspecified open wound of left breast, initial encounter (principal); X58.XXXA Exposure to other specified factors, initial encounter; Z01.810 Encounter for preprocedural cardiovascular examination; Z01.812 Encounter for preprocedural laboratory examination; Z86.718 Personal history of other venous thrombosis and embolism; Z53.8 Procedure and treatment not carried out for other reasons | CPT/HCPCS: 71046; 93005; J0690 ==

== ENCOUNTER 2022-08-04 11:29 | Outpatient (RCR) | payer MEDICARE ==
[~2022-08-04 11:29] MED LIST changes: +BUPIVACAINE 0.5%/EPI 30 ML SDV INJ ONE; +BUPIVACAINE HCL 0.5% INJ 30 ML VIAL INJ ONE; +LIDOCAINE VISC 2% SOLN 15 ML UDC ONE; +MUPIROCIN 2% OINT 22 GM TUBE ONE; +TRIAMCINOLONE ACET 0.1% CREAM 15 GM TUBE ONE
[2022-08-04] MEDS ORDERED: MUPIROCIN 2% OINT 22 GM TUBE ONE (11:56)
[2022-08-04] MEDS ORDERED: LIDOCAINE VISC 2% SOLN 15 ML UDC ONE (11:56)
== END 2022-08-10 ==
LOC: WCC 11:29
PROVIDERS: ATTEND Family Medicine Adult Medicine
DX: S21.002A Unspecified open wound of left breast, initial encounter (principal); S31.819A Unspecified open wound of right buttock, initial encounter; S31.829A Unspecified open wound of left buttock, initial encounter; S81.801A Unspecified open wound, right lower leg, initial encounter; I83.10 Varicose veins of unspecified lower extremity with inflammation; S80.821A Blister (nonthermal), right lower leg, initial encounter; R60.0 Localized edema; I10 Essential (primary) hypertension; E78.5 Hyperlipidemia, unspecified; E03.9 Hypothyroidism, unspecified; F41.1 Generalized anxiety disorder; K21.9 Gastro-esophageal reflux disease without esophagitis; M17.9 Osteoarthritis of knee, unspecified; M54.31 Sciatica, right side; N64.89 Other specified disorders of breast; R26.89 Other abnormalities of gait and mobility
CPT/HCPCS: 87071; 87075; 87205

== ENCOUNTER → 2022-08-26 | Day surgery (SDC) | payer MEDICARE ==
[2022-08-23 13:58] LABS: BASOPHILS # (AUTO) 0.1 (0.0-0.1); BASOPHILS % 0.9 % (0.0-1.0); EOSINOPHILS # (AUTO) 0.3 (0.0-0.4); EOSINOPHILS % 3.2 % (0.0-6.0); HEMATOCRIT 43.5 % (34.2-44.1); HEMOGLOBIN 13.4 g/dL (12.0-16.0); LYMPHOCYTES % 22.2 % (18.0-39.1); MEAN CORPUSCULAR HEMOGLOBIN 26.7 pg (28-32); MEAN CORPUSCULAR HGB CONC 30.8 g/dL (31-35); MEAN CORPUSCULAR VOLUME 86.7 fL (81-99); MONOCYTES # (AUTO) 0.7 (0.2-0.8); MONOCYTES % 7.6 % (4.4-11.3); NEUTROPHILS # (AUTO) 5.9 (2.1-6.9); PLATELET COUNT 211 x10e3/uL (140-360); RED BLOOD COUNT 5.02 x10e6/uL (3.6-5.1); RED CELL DISTRIBUTION WIDTH 14.9 % (11.7-14.4)
[~2022-08-26] MED LIST changes: -BUPIVACAINE HCL 0.5% INJ 30 ML VIAL INJ ONE; +DEXAMETHASONE SOD PHOS INJ 4 MG/ML SDV ONE; +FENTANYL CITRATE/PF 100MCG/2 ML INJ ONE; +LIDOCAINE HCL 2% LOCAL INJ 5 ML SDV VIAL INJ ONE; -LIDOCAINE VISC 2% SOLN 15 ML UDC ONE; +METOCLOPRAMIDE HCL 10 MG/2ML VIAL ONE; +MIDAZOLAM HCL 2 MG/2 ML VIAL ONE; +ONDANSETRON HCL INJ 2MG/ML 2ML 2 MG/ML VIAL ONE; +POVIDONE IODINE 0.05% 0.05 % ML PO ONE; +PROPOFOL IV EMULSION 10 MG/ML 20 ML VIAL ONE; +SEVOFLURANE INHAL SOLN 250 ML PEN BTL ONE; -TRIAMCINOLONE ACET 0.1% CREAM 15 GM TUBE ONE
[2022-08-26 08:20] VITALS: BP 147/72
== END | disposition home or self-care (01) ==
LOC: OR 08:01
PROVIDERS: ATTEND Plastic Surgery
DX: S21.002A Unspecified open wound of left breast, initial encounter (principal); I10 Essential (primary) hypertension; E66.9 Obesity, unspecified; K21.9 Gastro-esophageal reflux disease without esophagitis; G89.29 Other chronic pain; E03.9 Hypothyroidism, unspecified; X58.XXXA Exposure to other specified factors, initial encounter; Z88.6 Allergy status to analgesic agent; Z91.048 Other nonmedicinal substance allergy status; Z01.812 Encounter for preprocedural laboratory examination; Z79.82 Long term (current) use of aspirin; Z79.899 Other long term (current) drug therapy; Z98.890 Other specified postprocedural states; Z87.891 Personal history of nicotine dependence; Z86.718 Personal history of other venous thrombosis and embolism; Z86.16 Personal history of COVID-19
CPT/HCPCS: 19120; 36415; 85025; 88305; C1713; J0690; J1100; J2001; J2250; J2405; J2704; J2765; J3010; 88304

== ENCOUNTER 2022-11-09 14:13 | Outpatient (RCR) | payer MEDICARE ==
[~2022-11-09 14:13] MED LIST changes: -BUPIVACAINE 0.5%/EPI 30 ML SDV INJ ONE; -DEXAMETHASONE SOD PHOS INJ 4 MG/ML SDV ONE; -FENTANYL CITRATE/PF 100MCG/2 ML INJ ONE; -LIDOCAINE HCL 2% LOCAL INJ 5 ML SDV VIAL INJ ONE; +LIDOCAINE VISC 2% SOLN 15 ML UDC ONE; -METOCLOPRAMIDE HCL 10 MG/2ML VIAL ONE; -MIDAZOLAM HCL 2 MG/2 ML VIAL ONE; +MINERAL OIL/PETROLAT/GLYCERI 6OZ BTL ONE; -ONDANSETRON HCL INJ 2MG/ML 2ML 2 MG/ML VIAL ONE; -POVIDONE IODINE 0.05% 0.05 % ML PO ONE; -PROPOFOL IV EMULSION 10 MG/ML 20 ML VIAL ONE; -SEVOFLURANE INHAL SOLN 250 ML PEN BTL ONE; +TRIAMCINOLONE ACET 0.1% CREAM 15 GM TUBE ONE
[2022-11-11] MEDS ORDERED: MINERAL OIL/PETROLAT/GLYCERI 6OZ BTL ONE (13:53)
== END 2022-11-10 ==
LOC: WCC 14:13
PROVIDERS: ATTEND Family Medicine Adult Medicine
DX: I87.312 Chronic venous hypertension (idiopathic) with ulcer of left lower extremity (principal); I87.311 Chronic venous hypertension (idiopathic) with ulcer of right lower extremity; L97.829 Non-pressure chronic ulcer of other part of left lower leg with unspecified severity; L97.811 Non-pressure chronic ulcer of other part of right lower leg limited to breakdown of skin; S80.812D Abrasion, left lower leg, subsequent encounter; S80.811D Abrasion, right lower leg, subsequent encounter; R60.0 Localized edema; R23.8 Other skin changes

== ENCOUNTER 2022-11-11 08:12 | Outpatient (RCR) | payer MEDICARE ==
[~2022-11-11 08:12] MED LIST changes: -LIDOCAINE VISC 2% SOLN 15 ML UDC ONE; -MINERAL OIL/PETROLAT/GLYCERI 6OZ BTL ONE; -MUPIROCIN 2% OINT 22 GM TUBE ONE; -TRIAMCINOLONE ACET 0.1% CREAM 15 GM TUBE ONE
== END 2022-12-10 ==
LOC: WCC 08:12 → EDSTATUS 14:47
PROVIDERS: ATTEND Family Medicine Adult Medicine
DX: I87.312 Chronic venous hypertension (idiopathic) with ulcer of left lower extremity (principal); L97.829 Non-pressure chronic ulcer of other part of left lower leg with unspecified severity; R60.0 Localized edema

== ENCOUNTER → 2025-03-01 | Day surgery (SDC) | payer MEDICARE ==
[2025-02-22 15:59] LABS: BASOPHILS % 0.9 % (0.0-1.0); EOSINOPHILS % 3.2 % (0.0-6.0); LYMPHOCYTES % 34.6 % (18.0-39.1); MONOCYTES % 8.7 % (4.4-11.3); NEUTROPHILS % 52.4 % (38.7-80.0); RED CELL DISTRIBUTION WIDTH 14.9 % (11.7-14.4)
[2025-02-22 16:21] LABS: EST GLOMERULAR FILTRATION RATE 90.0 ML/MIN (>=60)
[~2025-03-01] MED LIST changes: +ACETAMINOPHEN 1000 MG/100 ML 100 ML IV ONE; +BOTULINUM TOXIN TYPE A 100 UNIT VIAL IM ONE; +CEFEPIME HCL 1 GM VIAL ONE; +DEXAMETHASONE SOD PHOS INJ 4 MG/ML SDV ONE; +EPHEDRINE SULFATE INJ 50 MG/ML VIAL ONE; +FAMOTIDINE 20 MG/2 ML VIAL IV ONE; +FENTANYL CITRATE/PF 100MCG/2 ML INJ ONE; +GENTAMICIN 80MG/NS 100 ML 200 ML IV ONE; +KETOROLAC TROMETHAMINE 30 MG/ML VIAL ONE; +LIDOCAINE HCL 2% LOCAL INJ 5 ML SDV VIAL INJ ONE; +ONDANSETRON HCL INJ 2MG/ML 2ML 2 MG/ML VIAL ONE; +PROPOFOL IV EMULSION 10 MG/ML 20 ML VIAL ONE
[2025-03-01 10:32] VITALS: TEMP 98.1
[2025-03-01] MEDS: PHENAZOPYRIDINE HCL 100 MG TAB ONE (10:55)
[2025-03-01 11:25] VITALS: BP 153/65; PULSE 98; RESP 16; O2SAT 94
== END | disposition home or self-care (01) ==
LOC: OR 08:57
PROVIDERS: ATTEND Urology
DX: N39.41 Urge incontinence (principal); R35.0 Frequency of micturition; R31.29 Other microscopic hematuria; N81.10 Cystocele, unspecified; N81.6 Rectocele; N32.3 Diverticulum of bladder; N36.41 Hypermobility of urethra; N95.2 Postmenopausal atrophic vaginitis; I10 Essential (primary) hypertension; I25.2 Old myocardial infarction; E03.9 Hypothyroidism, unspecified; K21.9 Gastro-esophageal reflux disease without esophagitis; G89.29 Other chronic pain; R00.1 Bradycardia, unspecified; Z01.810 Encounter for preprocedural cardiovascular examination; Z01.812 Encounter for preprocedural laboratory examination; Z01.818 Encounter for other preprocedural examination
CPT/HCPCS: 36415; 71046; 74420; 80048; 85025; 87086; 93005; C1758; J0587; J0692; J1100; J1308; J1580; J1885; J2003; J2405